=== PATIENT | male | born 1965 | race African-American/Black ===

== ENCOUNTER → 2016-09-17 | Outpatient (CLI) | payer OTHER ==
[~2016-09-17] VITALS: Ht 162.6 cm; Wt 98.9 kg
[~2016-09-17] MED LIST: ACTOPLUS MET1 TABLET PO; ACTOS15 MG PO; ALLOPURINOL100 MG PO; CHILDREN'S ASPI81 M1 PO; GLUCOPHAGE500 MG PO; INDOCIN25 MG PO; LEVO-T50 MCG PO; LISINOPRIL10 MG PO; LUMIGAN 0.50 DROP/2. BOTH EYES; SIMVASTATIN40 MG PO; ZESTRIL5 MG PO
[2016-09-17 10:35] LABS: POINT-OF-CARE METER ID UU13113694
[2016-09-17 12:28] LABS: POINT-OF-CARE METER ID UU13113819
== END | disposition home or self-care (01) ==
LOC: AMB 09:43
PROVIDERS: Internal Medicine
PROC: 0DJD8ZZ Inspection of Lower Intestinal Tract, Via Natural or Artificial Opening Endoscopic (ICD-10-PCS; principal; 2016-09-17)
DX: Z12.11 Encounter for screening for malignant neoplasm of colon (principal); E11.9 Type 2 diabetes mellitus without complications; K21.9 Gastro-esophageal reflux disease without esophagitis; I45.10 Unspecified right bundle-branch block; E78.00 Pure hypercholesterolemia, unspecified; F71 Moderate intellectual disabilities; Q90.9 Down syndrome, unspecified; E03.9 Hypothyroidism, unspecified; E66.9 Obesity, unspecified; Z88.0 Allergy status to penicillin; Z68.38 Body mass index [BMI] 38.0-38.9, adult; Z83.3 Family history of diabetes mellitus; Z82.49 Family history of ischemic heart disease and other diseases of the circulatory system; Z80.1 Family history of malignant neoplasm of trachea, bronchus and lung; Z83.511 Family history of glaucoma; Z79.82 Long term (current) use of aspirin; Z79.899 Other long term (current) drug therapy; Z79.84 Long term (current) use of oral hypoglycemic drugs
CPT/HCPCS: 82948; 93005